=== PATIENT | male | born 1965 | race Caucasian/White ===

== ENCOUNTER 2017-08-07 06:09 | Day surgery (SDC) | payer BC ==
[2017-08-07] MEDS ORDERED: Ketamine HCl 50 MG/ML IV ONE (06:10)
[2017-08-07] MEDS ORDERED: DIPRIVAN 200 MG/20 ML IV ONE (06:10)
[2017-08-07] MEDS ORDERED: Lactated Ringers 1,000 ML IV SCH (06:30)
[2017-08-07 07:56] VITALS: O2SAT 98
[2017-08-07 08:20] VITALS: BP 138/93; PULSE 71
--- NOTE | 2017-08-07 11:33 | OP ---
SURGERY DATE/TIME: 08/07/2017 0700 PREOPERATIVE DIAGNOSIS: Screening exam. POSTOPERATIVE DIAGNOSIS: Normal colon. PROCEDURE: Colonoscopy. SURGEON: Dr. Blount. ANESTHESIA: MAC. Medications given by anesthesia department. HISTORY: The patient is a 52 year-old white male presenting now for his first colonoscopy. He was appraised of the risks of the procedure including the risk of perforation, phlebitis, untoward reaction to medication, bleeding, and missed lesions. The patient verbalized his understanding and desired to have the procedure performed. DESCRIPTION OF PROCEDURE: The patient was given the medications by the anesthesia department. He had continuous pulse oximetry, ECG monitoring, intermittent blood pressure monitoring and tidal CO2 monitoring during the examination. He was placed in the left lateral decubitus position. A digital rectal examination was performed and revealed normal anal sphincter tone, no masses and normal prostate. The flexible Olympus pediatric colonoscope was used to intubate the rectum. A view of the colon was developed sequentially to the cecum. Upon insertion and withdrawal, including a retroflex view in the rectum, no mucosal lesions were encountered. The scope was removed from the patient who tolerated the procedure well and was sent back to OP recovery in good condition. The prep was noted to be fair to good.
== END 2017-08-07 08:23 | disposition home or self-care (01) ==
LOC: SDC 06:09
PROVIDERS: ATTEND Family Medicine
PROC: 0DJD8ZZ Inspection of Lower Intestinal Tract, Via Natural or Artificial Opening Endoscopic (ICD-10-PCS; principal; 2017-08-07)
DX: Z12.11 Encounter for screening for malignant neoplasm of colon (principal)
CPT/HCPCS: 00812; J2704

== ENCOUNTER 2018-04-22 18:15 | Emergency (ER) | payer BC ==
[2018-04-22] MEDS ORDERED: Sodium Chloride 0.9% 1000 ML 1,000 ML IV STA (19:08)
[2018-04-22] MEDS ORDERED: LEVOFLOXACIN 750MG/150ML D5W 750 MG/150 ML BAG IV STA (19:10)
[2018-04-22] MEDS ORDERED: Sodium Chloride 0.9% 1000 ML 1,000 ML ONE (19:25)
[2018-04-22] MEDS ORDERED: LEVOFLOXACIN 750MG/150ML D5W 750 MG/150 ML BAG IV ONE (19:25)
--- NOTE | 2018-04-22 19:33 | ERPHSYRPT ---
- History of Present Illness Time Seen by Provider: 04/22/18 18:50 Source: patient, family Exam Limitations: no limitations Patient Subjective Stated Complaint: states hasn't felt well since Tu. Has used tylenol/ibuprofen for fever and discomfort. Yesterday went to [facility] was prescribed clindamycin and dx cellulitis per [facility] Triage Nursing Assessment: LL leg edematous, warm to touch, foot also. Has had hx of cellulitis in this leg in past. Physician History: 52 y/o white male presents with recurrent left leg and foot cellulitis. present and worsening over 24 hours. pt has had in past. unknown cause. pt has had both vancomycin and levaquin in past which have been effective in clearing this up. pt has had a fever for past 48 hours and just has not felt well Method of Injury: unknown (no specific injury) Occurred: days ago (2) Quality: constant Severity of Pain-Max: mild Severity of Pain-Current: mild Lower Extremities Pain: leg: left, foot: left, ankle: left Modifying Factors: Improves With: nothing Allergies/Adverse Reactions: penicillin Allergy (Verified 08/06/17 14:46) Home Medications: Simvastatin [Zocor] 20 mg PO HS 12/28/14 [History] Garlic 1,000 mg PO DAILY 08/06/17 [History] Multivitamin [Multivitamins] 1 each PO DAILY 08/06/17 [History] [place]-3 Fatty Acids/Fish Oil [Fish Oil 1,000 mg Capsule] 1 each PO DAILY [History] Hx Tetanus, Diphtheria Vaccination/Date Given: Yes Hx Influenza Vaccination/Date Given: No Hx Pneumococcal Vaccination/Date Given: Yes - Review of Systems Constitutional: Fever, Malaise Eyes: No Symptoms Ears, Nose, & Throat: No Symptoms Respiratory: No Symptoms, No Cough, No Dyspnea, No Stridor, No Wheezing Cardiac: No Symptoms, No Chest Pain, No Edema, No Palpitations Abdominal/Gastrointestinal: No Symptoms, No Abdominal Pain, No Nausea, No Vomiting Genitourinary Symptoms: No Symptoms, No Dysuria, No Frequency, No Hematuria Musculoskeletal: No Symptoms Skin: No Symptoms Neurological: No Symptoms Psychological: No Symptoms Endocrine: No Symptoms Hematologic/Lymphatic: No Symptoms Immunological/Allergic: No Symptoms All Other Systems: Reviewed and Negative - Past Medical History Pertinent Past Medical History: Yes Neurological History: No Pertinent History ENT History: No Pertinent History Cardiac History: No Pertinent History Respiratory History: No Pertinent History Endocrine Medical History: No Pertinent History Musculoskeletal History: No Pertinent History GI Medical History: No Pertinent History, GERD History: No Pertinent History Psycho-Social History: No Pertinent History Male Reproductive Disorders: No Pertinent History - Past Surgical History Past Surgical History: No Neuro Surgical History: No Pertinent History Cardiac: No Pertinent History Respiratory: No Pertinent History Gastrointestinal: No Pertinent History Genitourinary: No Pertinent History Musculoskeletal: No Pertinent History Male Surgical History: No Pertinent History - Social History Smoking Status: Never smoker Exposure to second hand smoke: No Drug Use: none Patient Lives Alone: No - Nursing Vital Signs Nursing Vital Signs: Initial Vital Signs Temperature 100.1 F 04/22/18 18:29 Pulse Rate 114 H 04/22/18 18:29 Respiratory Rate 18 04/22/18 18:29 Blood Pressure 116/104 04/22/18 18:29 O2 Sat by Pulse Oximetry 97 04/22/18 18:29 Pain Scale Pain Intensity 5 - Physical Exam General Appearance: no apparent distress, mild distress, alert Eyes, Ears, Nose, Throat Exam: normal ENT inspection, moist mucous membranes Neck Exam: normal inspection, non-tender, supple, full range of motion Cardiovascular/Respiratory Exam: chest non-tender, normal breath sounds, tachycardia (mild) Gastrointestinal/Abdominal Exam: non-tender, soft, no organomegaly Back Exam: normal inspection, normal range of motion, No CVA tenderness, No vertebral tenderness Hips Exam: bilateral: non-tender, normal inspection, normal range of motion, no evidence of injury Legs Exam: right leg: non-tender, normal inspection, left leg: soft tissue tenderness, swelling, other (redness), bilateral leg: normal range of motion, no evidence of injury Knees Exam: bilateral knee: non-tender, normal inspection, normal range of motion, no evidence of injury Ankle Exam: right ankle: non-tender, normal inspection, left ankle: pain, soft tissue tenderness, swelling, bilateral ankle: normal range of motion, no evidence of injury Foot Exam: right foot: non-tender, normal inspection, left foot: soft tissue tenderness, swelling, other (redness), bilateral foot: normal range of motion, no evidence of injury Neuro/Tendon Exam: normal sensation, normal motor functions, normal tendon functions, responds to pain Mental Status Exam: alert, oriented x 3, cooperative Skin Exam: other (left lower ext redness, tenderness, warmth) SpO2 Interpretation: normal SpO2: 97 Oxygen Delivery: Room Air - Course Nursing assessment & vital signs reviewed: Yes Ordered Tests: Active Orders 24 hr Category Date Time Status IV Insertion STAT Care 04/22/18 19:08 Active BLOOD CULTURE Stat Lab 04/22/18 20:05 Received CBC W DIFF Stat Lab 04/22/18 19:15 Completed CMP Stat Lab 04/22/18 19:15 Completed Medication Summary Discontinued Medications Generic Name Dose Route Start Last Admin Trade Name Freq PRN Reason Stop Dose Admin Levofloxacin/Dextrose 750 mg in 150 mls @ 100 mls/hr 04/22/18 19:10 04/22/18 20:06 Levofloxacin 750mg/150ml D5w IV 04/22/18 20:39 100 ml/hr STAT STA 100 mls/hr Administration Sodium Chloride 1,000 mls @ 999 mls/hr 04/22/18 19:08 04/22/18 19:41 Sodium Chloride 0.9% 1000 Ml IV 04/22/18 20:08 999 mls/hr .Q1H1M STA Administration Sodium Chloride Confirm 04/22/18 19:25 Sodium Chloride 0.9% 1000 Ml Administered 04/22/18 19:26 Dose 1,000 mls @ ud .ROUTE .STK-MED ONE Levofloxacin/Dextrose Confirm 04/22/18 19:25 Levofloxacin 750mg/150ml D5w Administered 04/22/18 19:26 Dose 750 mg in 150 mls @ ud IV .STK-MED ONE Lab/Rad Data: Laboratory Result Diagrams 04/22/18 19:15 04/22/18 19:15 Laboratory Results 04/22/18 04/22/18 Range/Units 19:15 19:15 WBC 11.6 H (4.0-10.5) K/mm3 RBC 5.64 H (4.1-5.6) M/mm3 Hgb 17.0 (12.5-18.0) gm/dl Hct 48.2 (42-50) % MCV 85.5 (78-100) fl MCH 30.1 (26-32) pg MCHC 35.3 (32-36) g/dl RDW 13.1 (11.5-14.0) % Plt Count 181 (150-450) K/mm3 MPV 11.1 H (6-9.5) fl Gran % 85.2 H (36.0-66.0) % Eos # (Auto) 0 (0-0.5) Absolute Lymphs (auto) 1.05 (1.0-4.6) Absolute Monos (auto) 0.65 (0.0-1.3) Lymphocytes % 9.1 L (24.0-44.0) % Monocytes % 5.6 (0.0-12.0) % Eosinophils % 0.0 (0.00-5.0) % Basophils % 0.1 (0.0-0.4) % Absolute Granulocytes 9.88 H (1.4-6.9) Basophils # 0.01 (0-0.4) Sodium 139 (137-145) mmol/L Potassium 3.8 (3.5-5.1) mmol/L Chloride 103 (98-107) mmol/L Carbon Dioxide 25 (22-30) mmol/L Anion Gap 14.9 (5-15) MEQ/L BUN 14 (9-20) mg/dL Creatinine 1.13 (0.66-1.25) mg/dL Estimated GFR > 60.0 ML/MIN Glucose 136 H (74-106) mg/dL Calcium 9.5 (8.4-10.2) mg/dL Total Bilirubin 0.60 (0.2-1.3) mg/dL AST 26 (17-59) U/L ALT 40 (0-50) U/L Alkaline Phosphatase 99 (38-126) U/L Serum Total Protein 8.0 (6.3-8.2) g/dL Albumin 4.4 (3.5-5.0) g/dL - Progress Progress: improved Progress Note: 04/22/18 21:58 pts cellulitis has improved on left foot. spoke with dr. paris. i reviewed pt hx, condition and lab results. he agrees to 1gm iv vancomycin then d/c to home to f/u in his office tomorrow Discussed with : Jose Alejandro Counseled pt/family regarding: lab results, diagnosis, need for follow-up - Departure Time of Disposition: 22:01 Departure Disposition: Home Clinical Impression: Cellulitis Condition: Stable Critical Care Time: No Referrals: WILL PARIS [Primary Care Provider] - Additional Instructions: drink plenty of fluids. hold clindamycin dosing until you discuss with dr. paris. follow up with dr. paris's office tomorrow as discussed. use tylenol and ibuprofen for pain and fever.
[2018-04-22 20:09] LABS: BASOPHIL % 0.1 % (0.0-0.4); Basophil (Absolute #) 0.01 (0-0.4); Eosinophil (Absolute #) 0 (0-0.5); Granulocyte Absolute (ANC) 9.88 (1.4-6.9); Granulocytes % 85.2 % (36.0-66.0); Hematocrit 48.2 % (42-50); Lymphocyte (Absolute #) 1.05 (1.0-4.6); Lymphocytes % 9.1 % (24.0-44.0); Mean Cell Volume 85.5 fl (78-100); Mean Corpuscular Hemoglobin 30.1 pg (26-32); Mean Corpuscular Hgb Concent. 35.3 g/dl (32-36); Mean Platelet Volume 11.1 fl (6-9.5); Monocyte (Absolute #) 0.65 (0.0-1.3); Monocytes % 5.6 % (0.0-12.0); Platelet Count 181 K/mm3 (150-450); Red Blood Count 5.64 M/mm3 (4.1-5.6); Red Cell Distribution Width 13.1 % (11.5-14.0); White Blood Count 11.6 K/mm3 (4.0-10.5)
[2018-04-22 20:10] LABS: ALBUMIN 4.4 g/dL (3.5-5.0); ALKALINE PHOSPHATASE 99 U/L (38-126); ANION GAP 14.9 MEQ/L (5-15); BLOOD UREA NITROGEN 14 mg/dL (9-20); CHLORIDE 103 mmol/L (98-107); Calcium 9.5 mg/dL (8.4-10.2); Carbon Dioxide 25 mmol/L (22-30); Creatinine 1 1.13 mg/dL (0.66-1.25); Glucose 136 mg/dL (74-106); Potassium 3.8 mmol/L (3.5-5.1); SGOT/AST 26 U/L (17-59); SGPT/ALT 40 U/L (0-50); SODIUM 139 mmol/L (137-145)
[2018-04-22] MEDS ORDERED: TYLENOL 325 MG PO STA (22:00)
[2018-04-22] MEDS ORDERED: Vancomycin 1GM/ Ns 250ML*** 1 GM/250 ML IVPB IV ONE (22:01)
[2018-04-22] MEDS ORDERED: Vancomycin 1GM/ Ns 250ML*** 250 ML IV ONE (22:13)
[2018-04-22] MEDS ORDERED: TYLENOL 325 MG ONE (22:14)
[2018-04-22 23:02] VITALS: BP 121/90; PULSE 102; O2SAT 98
== END 2018-04-23 00:05 | disposition home or self-care (01) ==
LOC: ED 18:15
DX: L03.116 Cellulitis of left lower limb (principal); Z79.899 Other long term (current) drug therapy
CPT/HCPCS: 36000; 36415; 80053; 85025; 87040; 96360; 96365; 96367; 99284; J1956; J3370; A9270-GY

== ENCOUNTER 2019-09-01 06:01 | Day surgery (SDC) | payer BC ==
--- NOTE | 2019-08-30 13:08 | HP ---
DATE OF SURGERY: 09/01/2019 ANTICIPATED PROCEDURE: EGD. HISTORY OF PRESENT ILLNESS: The patient has dysfunctional gallbladder. He has not had an EGD to date. HIDA scan was 93%. He has epigastric discomfort. He has not had EGD or upper GI. We think it would be prudent prior to consideration to cholecystectomy. He did have a HIDA scan hyperactive at 93%. PAST MEDICAL HISTORY: ALLERGIES: PENICILLIN. MEDICATIONS: Simvastatin. PAST SURGICAL HISTORY: None. SOCIAL HISTORY: Negative. FAMILY HISTORY: Negative. REVIEW OF SYSTEMS: CVS: Negative. PULMONARY: Negative. PHYSICAL EXAMINATION: VITAL SIGNS: Normal. CHEST: Clear. COR: Regular. ABDOMEN: Satisfactory. PLAN: EGD. We are also considering him for cholecystectomy in the future.
[2019-09-01] MEDS ORDERED: Lactated Ringers 1,000 ML IV SCH (06:30)
[2019-09-01] MEDS ORDERED: DIPRIVAN 200 MG/20 ML IV ONE (08:35)
[2019-09-01 10:14] VITALS: O2SAT 98
[2019-09-01 10:24] VITALS: BP 143/85; PULSE 74
--- NOTE | 2019-09-02 08:27 | OP ---
SURGERY DATE/TIME: 09/01/2019 0828 PREOPERATIVE DIAGNOSIS: Epigastric pain. POSTOPERATIVE DIAGNOSIS: Gastroesophageal reflux disease 2/3. PROCEDURE: EGD. SURGEON: Christiano Sidhu M.D. ANESTHESIA: MAC. COMPLICATIONS: None. CONDITION: Stable. INDICATION: A patient requiring evaluation. DESCRIPTION OF PROCEDURE: Taken to endoscopy. MAC sedation provided. Scope introduced. Pharyngoesophageal junction normal. Esophagus normal down to gastroesophageal junction. There is a 2 cm rim of gastroesophageal reflux disease. There is no hiatal hernia. Fundus, body and antrum normal. Pylorus normal. Duodenal bulb normal. Second portion normal. Scope withdrawn looped upon itself. No findings. Scope withdrawn. The patient tolerated the procedure satisfactorily. Findings discussed with the .
== END 2019-09-01 10:00 | disposition home or self-care (01) ==
LOC: SDC 06:01
PROVIDERS: ATTEND Surgery
DX: K21.9 Gastro-esophageal reflux disease without esophagitis (principal)
CPT/HCPCS: J2704

== ENCOUNTER 2021-12-02 20:48 | Emergency (ER) | payer BC ==
--- NOTE | 2021-12-02 20:49 | ERPHSYRPT ---
- History of Present Illness Time Seen by Provider: 12/02/21 20:49 Source: patient, family Exam Limitations: no limitations Physician History: This is a 56-year-old white male patient of Dr. Blount who has had recurrent cellulitis in the past and presents with redness to his right lower extremity that began today. He had some leftover Bactrim from a prior bout and started taking that yesterday. What tends to work well for him is Levaquin orally. He has had Keflex in the past. He felt warm but did not have today. He did state that he felt feverish prior to today. Quality: painful Severity: mild (Mild ) Location: extremities (Right lower extremity below the knee) Possible Causes: no cause identified Modifying Factors: Improves With: antihistamine Associated Symptoms: denies symptoms Allergies/Adverse Reactions: penicillin Allergy (Verified 09/01/19 06:31) Rash Home Medications: Simvastatin [Zocor] 20 mg PO HS 12/28/14 [History] Multivitamin [Multivitamins] 1 each PO DAILY 08/06/17 [History] [place]-3 Fatty Acids/Fish Oil [Fish Oil 1,000 mg Capsule] 1 each PO DAILY 08/06/17 [History] Famotidine [Pepcid] 20 mg PO DAILY PRN PRN 08/24/19 [History] Hx Tetanus, Diphtheria Vaccination/Date Given: Yes Hx Influenza Vaccination/Date Given: No Hx Pneumococcal Vaccination/Date Given: Yes Travel Risk - International Travel Have you traveled outside of the country in past 3 weeks: No - Coronavirus Screening Are you exhibiting any of the following symptoms?: No Close contact with a COVID-19 positive Pt in past 14-21 Days: No - Review of Systems Constitutional: No Symptoms Eyes: No Symptoms Ears, Nose, & Throat: No Symptoms Respiratory: No Symptoms Cardiac: No Symptoms Abdominal/Gastrointestinal: No Symptoms Genitourinary Symptoms: No Symptoms Musculoskeletal: No Symptoms Skin: Cellulitis (Right lower leg below the knee) Neurological: No Symptoms Psychological: No Symptoms Endocrine: No Symptoms Hematologic/Lymphatic: No Symptoms Immunological/Allergic: No Symptoms All Other Systems: Reviewed and Negative - Past Medical History Pertinent Past Medical History: Yes Neurological History: No Pertinent History ENT History: No Pertinent History Cardiac History: No Pertinent History Respiratory History: No Pertinent History Endocrine Medical History: No Pertinent History Musculoskeletal History: No Pertinent History GI Medical History: GERD, Other History: No Pertinent History Psycho-Social History: No Pertinent History Male Reproductive Disorders: No Pertinent History Other Medical History: fatty liver, cellulitis in left leg in the past over a year ago - Past Surgical History Past Surgical History: No Neuro Surgical History: No Pertinent History Cardiac: No Pertinent History Respiratory: No Pertinent History Gastrointestinal: No Pertinent History Genitourinary: No Pertinent History Musculoskeletal: No Pertinent History Male Surgical History: No Pertinent History Other Surgical History: colonoscopy - Social History Smoking Status: Never smoker Exposure to second hand smoke: No Drug Use: none Patient Lives Alone: No - Nursing Vital Signs Nursing Vital Signs: Initial Vital Signs Temperature 97.5 F 12/02/21 20:55 Pulse Rate 109 H 12/02/21 20:55 Respiratory Rate 18 12/02/21 20:55 Blood Pressure 182/111 12/02/21 20:55 O2 Sat by Pulse Oximetry 99 12/02/21 20:55 Pain Scale Pain Intensity 0 - Physical Exam General Appearance: no apparent distress, alert, anxiety Eye Exam: PERRL/EOMI, eyes nml inspection Ears, Nose, Throat Exam: normal ENT inspection, moist mucous membranes Neck Exam: normal inspection, non-tender, supple, full range of motion Respiratory Exam: airway intact, No chest tenderness, No respiratory distress Cardiovascular Exam: tachycardia (Mild) Gastrointestinal/Abdomen Exam: No tenderness Rectal Exam: not done Back Exam: normal inspection, normal range of motion, No CVA tenderness, No vertebral tenderness Extremity Exam: normal range of motion, pelvis stable, other (Cellulitis right lower) Neurologic Exam: alert ( extremity below the knee), oriented x 3, cooperative, 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, normal mood/affect, nml cerebellar function, nml station & gait, sensation nml Skin Exam: other (Right lower extremity cellulitis below the knee) Lymphatic Exam: No adenopathy SpO2 Interpretation: normal O2 Delivery: Room Air - Course Nursing assessment & vital signs reviewed: Yes Ordered Tests: Medication Summary Discontinued Medications Generic Name Dose Route Start Last Admin Trade Name Freq PRN Reason Stop Dose Admin Ceftriaxone Sodium 1,000 mg 12/02/21 21:07 12/02/21 21:16 Ceftriaxone Sodium 1000 Mg Inj Vial IM 12/02/21 21:08 1,000 mg STAT ONE Administration Ceftriaxone Sodium Confirm 06/20/22 21:12 Ceftriaxone Sodium 1000 Mg Inj Vial Administered 12/02/21 21:13 Dose 1,000 mg .ROUTE .STK-MED ONE Levofloxacin 500 mg 12/02/21 21:07 12/02/21 21:15 Levofloxacin 500 Mg Tablet PO 12/02/21 21:08 500 mg STAT ONE Administration Levofloxacin Confirm 12/02/21 21:12 Levofloxacin 500 Mg Tablet Administered 12/02/21 21:13 Dose 500 mg .ROUTE .STK-MED ONE Lidocaine HCl Confirm 12/02/21 21:12 Lidocaine Hcl 1% 20 Ml Mdv 20 Ml Ml Administered 12/02/21 21:13 Dose 3 ml .ROUTE .STK-MED ONE - Progress Progress: unchanged Counseled pt/family regarding: diagnosis, need for follow-up - Departure Departure Disposition: Home Clinical Impression: Cellulitis of right lower extremity Condition: Stable Critical Care Time: No Referrals: WILL BLOUNT [Primary Care Provider] - Follow up/PCP as directed Additional Instructions: Keep the right lower extremity cellulitis site clean daily with soap and water. Keep your bilateral lower extremities moist with unscented lotion twice a day. Follow-up with Dr. Blount in his office for further evaluation management. Return to emergency department if symptoms worsen. Stop the Bactrim DS medication. Prescriptions: Levofloxacin [Levaquin 500 MG Tablet] 500 mg PO DAILY #7 tablet
[2021-12-02] MEDS ORDERED: Levofloxacin 500 MG Tablet PO ONE (21:07)
[2021-12-02] MEDS ORDERED: Rocephin 1000 MG INJ IM ONE (21:07)
[2021-12-02] MEDS ORDERED: Rocephin 1000 MG INJ ONE (21:12)
[2021-12-02] MEDS ORDERED: Levofloxacin 500 MG Tablet ONE (21:12)
[2021-12-02] MEDS ORDERED: XYLOCAINE 1% HCL 20 ML MDV ONE (21:12)
[2021-12-02 21:42] VITALS: BP 129/80; PULSE 95; O2SAT 98
== END 2021-12-02 21:44 | disposition home or self-care (01) ==
LOC: ED 20:48
DX: L03.115 Cellulitis of right lower limb (principal); M79.661 Pain in right lower leg; Z79.899 Other long term (current) drug therapy
CPT/HCPCS: 96372; 99283; J0696; A9270-GY

== ENCOUNTER 2022-10-03 05:50 | Day surgery (SDC) | payer BC ==
[2022-10-03] MEDS ORDERED: DIPRIVAN 200 MG/20 ML IV ONE (06:18)
[2022-10-03] MEDS ORDERED: Versed 2 MG/2 ML Injection ONE (06:18)
[2022-10-03] MEDS ORDERED: Xylocaine-Mpf 2% 5 Ml Vial ONE (06:18)
[2022-10-03] MEDS ORDERED: Lactated Ringers 1,000 ML IV SCH (06:30)
[2022-10-03] MEDS ORDERED: Lactated Ringers 1,000 ML IV ONE (06:32)
--- NOTE | 2022-10-03 08:55 | OP ---
SURGERY DATE/TIME: 10/03/2022 0804 PREOPERATIVE DIAGNOSIS: Abdominal pain. POSTOPERATIVE DIAGNOSES: 1) Moderate gastritis. 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 PROCEDURE: Esophagogastroduodenoscopy with cold forceps biopsy of the gastric antrum and esophagus. SURGEON: Dr. Blount. ANESTHESIA: Medications were given by the anesthesia department. BRIEF HISTORY: The patient is a 57-year-old white male patient who presents with abdominal pain. The patient has been on omeprazole with minimal relief. The patient's history is otherwise that his mother has fairly recently and one of his close friends with history of colon cancer. The patient was felt the need to have endoscopic evaluation. He was appraised of the risks of the procedure including the risk of perforation, phlebitis, untoward reaction to medication, bleeding and missed lesions. The patient verbalized his understanding and desired to have the procedure performed. DESCRIPTION OF PROCEDURE: The patient was given the medications by the anesthesia department. He had continuous pulse oximetry, ECG monitoring and intermittent blood pressure monitoring during the examination. He was placed in the left lateral decubitus position. A bite block was placed and the flexible Olympus gastroscope was used to intubate the oropharynx. The pylorus was obtained and was normal. The scope was easily introduced in the esophagus where there appeared to be some whitish adherent material especially the mid portion of the esophagus consistent with what we thought to be Yamilex esophagitis this was biopsied to confirm the clinical impression. The scope was passed along into the stomach where normal gastric rugal folds were seen. The scope was passed along the greater curvature of the stomach to the antrum. The pylorus was encountered and intubated. The duodenum inspected and found to be normal. The scope is withdrawn towards the stomach. Again retroflex view was obtained of the lesser curvature, fundus and cardia regions of the stomach and these appeared to be somewhat erythematous. No other mucosal lesions being encountered the scope was removed from the patient who tolerated the procedure well and was sent back to outpatient recovery in good condition.
[2022-10-03 08:59] VITALS: O2SAT 97
[2022-10-03 09:01] VITALS: BP 118/72; PULSE 78
== END 2022-10-03 09:05 | disposition home or self-care (01) ==
LOC: SDC 05:50
PROVIDERS: ATTEND Family Medicine
DX: K29.70 Gastritis, unspecified, without bleeding (principal); R10.9 Unspecified abdominal pain; B37.81 Candidal esophagitis
CPT/HCPCS: J2250; J2704